=== PATIENT | female | born 1980 | race Two or more races ===

== ENCOUNTER → 2019-01-25 | Emergency (ER) | payer OTHER ==
[~2019-01-25] VITALS: Ht 162.6 cm; Wt 87.5 kg
== END | disposition home or self-care (01) ==
LOC: ER 13:56
DX: K29.70 Gastritis, unspecified, without bleeding (principal)

== ENCOUNTER 2020-10-06 10:25 | Emergency (ER) | payer OTHER ==
[~2020-10-06] VITALS: Ht 162.6 cm; Wt 100.7 kg
== END 2020-10-06 13:46 | disposition home or self-care (01) ==
LOC: ER 10:25
DX: M94.0 Chondrocostal junction syndrome [Tietze] (principal); R07.89 Other chest pain

== ENCOUNTER 2021-03-03 14:27 | Emergency (ER) | payer OTHER ==
[~2021-03-03] VITALS: Ht 162.6 cm; Wt 99.8 kg
== END 2021-03-03 18:18 | disposition home or self-care (01) ==
LOC: ER 14:27
DX: R60.0 Localized edema (principal); M79.662 Pain in left lower leg; M79.661 Pain in right lower leg

== ENCOUNTER 2021-03-04 09:24 | Outpatient (CLI) | payer OTHER | END 2021-03-04 09:28 | disposition home or self-care (01) | LOC: NUCLEAR 09:24 | PROVIDERS: ATTEND General Practice | DX: R60.0 Localized edema (principal); I73.9 Peripheral vascular disease, unspecified ==